=== PATIENT | female | born 1960 | race Caucasian/White ===

== ENCOUNTER 2017-01-07 16:00 | Outpatient (CLI) | payer OTHER ==
--- NOTE | 2017-01-08 12:26 | Mammography Report ---
DIGITAL SCREENING MAMMOGRAM: 01/07/2017 CLINICAL INDICATION: A 56-year-old for screening. COMPARISON: 07/2014, 02/2012, 05/2010, 04/2009, 03/2008, 02/2007 TECHNIQUE: Routine CC and MLO projections were obtained of the breasts. FINDINGS: The breasts again demonstrate heterogeneously dense fibroglandular parenchyma bilaterally. Coarse and punctate, typically benign calcifications are present. In the right lower, outer centra l breast, there is a possible developing density. Further evaluation with spot compression views and possible ultrasound is recommended. No mammographically suspicious findings are appreciated in the left breast. IMPRESSION: INCOMPLETE EXAMINATION. RECOMMENDATION: Additional evaluation of the right breast as above. BIRADS CATEGORY 0 - INCOMPLETE. STANDARD QUALIFYING STATEMENTS 1. This examination was reviewed with the aid of Computer-Aided Detection (CAD). 2. A negative or benign imaging report should not delay biopsy if clinically suspicious findings are present. Consider surgical consultation if warranted. More than 5% of cancers are not identified by i maging. 3. Dense breasts may obscure an underlying neoplasm. JOB #: [id number] EXT JOB #:[id number]
== END 2017-01-07 16:01 | disposition home or self-care (01) ==
LOC: DI 16:00
PROVIDERS: ATTEND Physician Assistant
DX: Z12.31 Encounter for screening mammogram for malignant neoplasm of breast (principal)
CPT/HCPCS: 77067

== ENCOUNTER 2017-02-16 13:45 | Outpatient (CLI) | payer OTHER ==
--- NOTE | 2017-02-16 18:19 | Mammography Report ---
DIGITAL DIAGNOSTIC RIGHT MAMMOGRAM: 02/16/2017 CLINICAL INDICATION: Possible developing density right lower outer central breast. TECHNIQUE: Right true lateral and spot compression views. COMPARISON: 01/07/2017, 07/25/2014, 03/03/2012, 05/15/2010. The right breast again demonstrates heterogeneously dense fibroglandular parenchyma. The density in question dissipates evenly on additional compression. No underlying mass lesion is seen. Punctate, typically benign calcifications are present. IMPRESSION: BENIGN FINDINGS. RECOMMENDATION: ROUTINE ANNUAL SCREENING UNLESS OTHERWISE CLINICALLY INDICATED. BIRADS CATEGORY: 2, BENIGN FINDINGS. STANDARD QUALIFYING STATEMENTS 1. This examination was reviewed with the aid of Computed-Aided Detection (CAD). 2. A negative or benign imaging report should not delay biopsy if clinically suspicious findings are present. Consider surgical consultation if warranted. More than 5% of cancers are not identified b y imaging. 3. Dense breasts may obscure an underlying neoplasm. JOB #: [id number] EXT JOB #:[id number]
== END 2017-02-16 13:46 | disposition home or self-care (01) ==
LOC: DI 13:45
PROVIDERS: ATTEND Physician Assistant
DX: R92.8 Other abnormal and inconclusive findings on diagnostic imaging of breast (principal)

== ENCOUNTER 2017-03-08 11:18 | Observation (INO) | payer OTHER ==
[2017-03-08] MEDS ORDERED: ASPIRIN CHEW 81 MG TABLET PO STA (11:34)
[2017-03-08 11:38] LABS: BASOPHILS # (AUTO) 0.1 10^3/uL (0.0-0.1); EOSINOPHILS # (AUTO) 0.2 10^3/uL (0.0-0.7); EOSINOPHILS % (AUTO) 2.1 %; HCT - HEMATOCRIT 44.1 % (37.0-47.0); HGB - HEMOGLOBIN 14.7 g/dL (12.0-16.0); LYMPHOCYTES # (AUTO) 2.5 10^3/uL (1.5-3.5); LYMPHOCYTES % (AUTO) 24.9 %; MEAN CORPUSCULAR HEMOGLOBIN 29.2 pg (27.0-31.0); MEAN CORPUSCULAR HGB CONC 33.3 g/dL (32.0-36.0); MEAN CORPUSCULAR VOLUME 87.6 fL (81.0-99.0); MEAN PLATELET VOLUME 8.4 fL (7.9-10.8); MONOCYTES # (AUTO) 0.7 10^3/uL (0.0-1.0); MONOCYTES % (AUTO) 6.5 %; NEUTROPHILS # (AUTO) 6.6 10^3/uL (1.5-6.6); NEUTROPHILS % (AUTO) 65.5 %; RED BLOOD COUNT 5.03 10^6/uL (4.20-5.40); RED CELL DISTRIBUTION WIDTH 14.2 % (12.0-15.0); UNCORRECTED WHITE BLOOD COUNT 10.1 x10^3/uL; WHITE BLOOD COUNT 10.1 x10^3/uL (4.8-10.8)
[2017-03-08 11:50] LABS: ALBUMIN/GLOBULIN RATIO 1.3 (1.0-2.2); BILIRUBIN,TOTAL 0.5 mg/dL (0.2-1.0); CALCIUM 9.9 mg/dL (8.5-10.3); CREATININE 0.8 mg/dL (0.4-1.0); POTASSIUM 4.3 mmol/L (3.5-5.0); TOTAL PROTEIN 8.1 g/dL (6.7-8.2)
[2017-03-08] MEDS ORDERED: ASPIRIN CHEW 81 MG TABLET ONE (11:50)
[2017-03-08] MEDS ORDERED: NITROGLYCERIN SL 0.4 MG TABLET SL STA (11:56)
[2017-03-08] MEDS ORDERED: FAMOTIDINE 20 MG/50 ML 50 ML IV ONE ×2 (11:56→12:17)
[2017-03-08] MEDS ORDERED: MAG HYDROX/AL HYDROX/SIMETH 30 ML UDC PO STA (11:56)
[2017-03-08] MEDS ORDERED: LIDOCAINE VISCOUS 2% 15 ML UDC MM STA (11:56)
--- NOTE | 2017-03-08 12:00 | ED Physician Documentation ---
History of Present Illness - Stated complaint Stated Complaint: CHEST PX - Chief complaint Chief Complaint: Cardiac - Additonal information Additional information: hx from pt 56 f no known CAD no DM HTN lipids, non smoker hx GERD on meds developed chest discomfort approx 40 min prior to my eval at 1145 initially felt like a low sternal bubble that worsened and radiated to upper chest and neck and then into back where pain is sharp and stabbing and severe + SOA + nausea + sweats no leg pain or swelling Review of Systems Constitutional: reports: Sweats. denies: Fever, Chills Cardiac: reports: Chest pain / pressure Respiratory: reports: Dyspnea GI: reports: Abdominal Pain (upper). 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 07/13/14 09/17/14 Sucralfate [Carafate] 1 gm PO ACHS #120 tablet 07/13/14 09/17/14 - Allergies Allergies/Adverse Reactions: Allergies Allergy/AdvReac Type Severity Reaction Status Date / Time No Known Drug Allergies Allergy Verified 03/08/17 11:30 - Social History Does the pt smoke?: No Smoking Status: Never smoker Does the pt drink ETOH?: Yes Does the pt have substance abuse?: No - Immunizations Immunizations are current?: Yes - POLST Patient has POLST: No PD ED PE NORMAL - Vitals Vital signs reviewed: Yes - General General: Alert and oriented X 3 - HEENT HEENT: PERRL - Neck Neck: Supple, no meningeal sign - Cardiac Cardiac: RRR - Respiratory Respiratory: No respiratory distress, Clear bilaterally - Abdomen Abdomen: Soft, Other (mild upper abd TTP) - Derm Derm: Normal color - Extremities Extremities: Normal ROM s pain, No edema, No calf tenderness / cord - Neuro Neuro: Alert and oriented X 3 Results - Vitals Vitals: Vital Signs - 24 hr 03/08/17 03/08/17 03/08/17 11:27 12:23 13:52 Temperature 36.5 C 36.8 C Heart Rate 70 82 83 Respiratory 17 15 15 Rate Blood Pressure 163/116 H 145/82 H 121/68 O2 Saturation 98 95 97 03/08/17 14:30 Temperature Heart Rate 68 Respiratory 15 Rate Blood Pressure 150/84 H O2 Saturation 97 Oxygen O2 Source Room air - EKG (time done) 1128 Rate: Rate (enter#) (69) Rhythm: NSR [place]: Normal Intervals: Normal SD QRS: Normal Ischemia: Normal ST segments 1215 Rate: Rate (enter#) (64) Rhythm: NSR [place]: Normal Intervals: Normal SD Ischemia: Normal ST segments, Q waves (III and V1 only) - Labs Labs: Laboratory Tests 03/08/17 03/08/17 03/08/17 11:30 11:30 11:30 WBC 10.1 RBC 5.03 Hgb 14.7 Hct 44.1 MCV 87.6 MCH 29.2 MCHC 33.3 RDW 14.2 Plt Count 269 MPV 8.4 Neut # 6.6 Lymph # 2.5 [place] # 0.7 Eos # 0.2 Baso # 0.1 Absolute Nucleated RBC 0.00 Nucleated RBC % 0.0 Sodium 137 Potassium 4.3 Chloride 104 Carbon Dioxide 24 Anion Gap 9.0 BUN 18 Creatinine 0.8 Estimated GFR (MDRD) 74 L Glucose 100 Calcium 9.9 Total Bilirubin 0.5 AST 24 ALT 26 Alkaline Phosphatase 176 H Troponin I < 0.04 Total Protein 8.1 Albumin 4.5 Globulin 3.6 Albumin/Globulin Ratio 1.3 Lipase 28 - Rads (name of study) CXR Radiology: See rad report (normal) CTA chest Radiology: See rad report (no dissection, no PE) PD MEDICAL DECISION MAKING - ED course ED course: pain sig improved with asa pepcid GI cocktail and nitro from 01/17 to 06/19 EKG X 2 no dynamic chnages trop #1 neg CTA neg for dissection and PE will admit for DINORA spoke to hospitalist at 1450 pt updated Departure - Departure Disposition: ED Place in Observation Clinical Impression: Chest pain
--- NOTE | 2017-03-08 12:06 | XRAY Preliminary Report ---
Exam: XR CHEST 1 VIEW IMPRESSION: Normal single view chest. [facility] SITE ID: [id number]
--- NOTE | 2017-03-08 12:09 | XRAY Report ---
EXAM: CHEST RADIOGRAPHY EXAM DATE: 03/08/2017 11:51 AM. CLINICAL HISTORY: Chest pain and shortness of breath. COMPARISON: None. TECHNIQUE: 1 view. FINDINGS: Lungs/Pleura: No focal opacities evident. No pleural effusion. No pneumothorax. Mediastinum: Within exam limitations, the cardiomediastinal contour is normal. Other: None. IMPRESSION: Normal single view chest. [facility] Referring Provider Line: [phone] SITE ID: [id number]
[2017-03-08] MEDS ORDERED: ASPIRIN 325 MG TABLET PO ONE (12:16)
[2017-03-08] MEDS ORDERED: NITROGLYCERIN SL 0.4 MG TABLET SL ONE (12:16)
[2017-03-08] MEDS ORDERED: LIDOCAINE VISCOUS 2% 15 ML UDC MM ONE (12:17)
[2017-03-08] MEDS ORDERED: MAG HYDROX/AL HYDROX/SIMETH 30 ML UDC ONE (12:17)
[2017-03-08] MEDS ORDERED: IOPAMIDOL-300 100 ML VIAL ONE (12:22)
[2017-03-08] MEDS ORDERED: IOPAMIDOL-300 100 ML VIAL IVP ONE (13:17)
--- NOTE | 2017-03-08 13:41 | CT Preliminary Report ---
Exam: CT CHEST ANGIO (AORTA) IMPRESSION: 1. Unremarkable thoracic aorta. No aneurysm or dissection. 2. No acute intrathoracic abnormality identified. Clear lungs. 3. Incidental findings, as noted. [facility] SITE ID: [id number]
--- NOTE | 2017-03-08 13:44 | CT Report ---
EXAM: CTA CHEST EXAM DATE: 03/08/2017 12:48 PM. CLINICAL HISTORY: Stabbing back pain radiating to back.? Thoracic aortic dissection.. COMPARISON: Chest x-ray earlier today. TECHNIQUE: Thin section thoracic spinal CT angiography during uncomplicated IV administration of 100 ML Isovue 300, with coronal and sagittal 3-D MIP reconstructions and reformats. In accordance with CT protocol optimization, one or more of the following dose reduction techniques w ere utilized for this exam: automated exposure control, adjustment of mA and/or KV based on patient s ize, or use of iterative reconstructive technique. FINDINGS: Vascular Structures: No thoracic aortic dissection or aneurysm. Ascending and descending thoracic aor ta measures 3 cm and 2.5 cm in diameter, respectively. No atheromatous plaques. Conventional arch con figuration and unremarkable great vessels. The pulmonary arteries are not well-opacified due to systemic arterial contrast bolus timing. No obvi ous central pulmonary embolism. Lungs/Pleura: Clear lungs. No vascular congestion. No central endobronchial obstructing lesion. No pl eural effusion or pneumothorax. Mediastinum: No mass or lymphadenopathy. Normal heart size without pericardial effusion. No coronary calcification. No esophageal dilatation. Upper Abdomen: Suspect hepatic steatosis. Partially visualized contracted gallbladder. Other: No acute fracture. Partially fused T10-T11 and T11-T12 disks, likely congenital. Mild dextrosc oliosis. IMPRESSION: 1. Unremarkable thoracic aorta. No aneurysm or dissection. 2. No acute intrathoracic abnormality identified. Clear lungs. 3. Incidental findings, as noted. [facility] Referring Provider Line: [phone] SITE ID: [id number]
[2017-03-08] MEDS ORDERED: SODIUM CHLORIDE FLUSH 0.9% 10 ML SYRINGE IVP PRN (14:54)
[2017-03-08] MEDS ORDERED: LORazepam 0.5 MG TABLET PO PRN ×2 (14:58→19:08)
[2017-03-08] MEDS ORDERED: NITROGLYCERIN 2% PASTE TOP STA (15:39)
[2017-03-08] MEDS ORDERED: NITROGLYCERIN 2% PASTE TOP ONE (15:53)
[2017-03-08] MEDS: ACETAMINOPHEN 325 MG TABLET PO PRN (17:27)
[2017-03-08] MEDS: ENOXAPARIN 40 MG/0.4 ML SYRINGE SUBQ SCH (17:27)
[2017-03-08] MEDS: FAMOTIDINE 20 MG TABLET PO SCH (17:27)
[2017-03-08] MEDS: SUCRALFATE 1 GM/10 ML UDC PO SCH ×2 (17:27→22:27)
[2017-03-08] MEDS ORDERED: ALBUTEROL 6.7 GM INHALER INH PRN (19:08)
[2017-03-08] MEDS ORDERED: IBUPROFEN 400 MG PO PRN (19:08)
[2017-03-08] MEDS ORDERED: ALBUTEROL NEB 2.5 MG/3 ML INH PRN (20:04)
[2017-03-08] MEDS: SODIUM CHLORIDE FLUSH 0.9% 10 ML SYRINGE IVP SCH (22:28)
--- NOTE | 2017-03-09 01:34 | HISTORY & PHYSICAL EXAMINATION ---
DATE OF ADMISSION: 03/08/2017 HISTORY OF PRESENT ILLNESS: This is a 56-year-old white female with a history of sleep apnea on CPAP, reflux, obesity. The patient states that she remembers having chest pain approximately 3 years ago f or which she underwent stress testing which she states was normal, these results are not available. The patient states she has been under increased stress at work. She developed an episode of chest pre ssure in the epigastric area and lower chest, which she describes as a "gas bubble." She could not bu rp. She goes from seated position to stretch out and also get some fresh air, but this did not reliev e the symptoms and she continued to have worsening and spread of the discomfort upward into the chest and then into the neck and jaw and through to the mid back. She tried to wait but there was no relie f and after 45 minutes, a coworker brought her to the emergency room, where she was still having 7-9/ 10 chest discomfort. She received both a GI cocktail, as well as nitrates and she states that mostly the GI medications bringing her pain eventually down to 0. There was associated shortness of breath w ith this and even pleuritic discomfort, as well as diaphoresis, but no nausea or vomiting and no radi ation to the arms. MEDICATIONS AT HOME: 1. Ativan p.r.n. 2. Synthroid. 3. Effexor. 4. Pepcid. 5. Prilosec. 6. Carafate. ALLERGIES: NONE. FAMILY HISTORY: Positive for heart disease in both parents in their 50s and her father had vascular d isease with an abdominal aortic aneurysm. SOCIAL HISTORY: She is a nonsmoker, never smoked, drinks social alcohol, denies drug use. 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 REVIEW OF SYSTEMS A comprehensive review of systems was performed and is negative except for the above findings. She de nies any CHF symptoms. PHYSICAL EXAMINATION: GENERAL: Reveals an obese white female. She is in no distress, supine in bed. VITAL SIGNS: Blood pressure 150/84, pulse is in the 70s. She is in sinus rhythm, afebrile, respirator y rate 18. HEENT: Unremarkable. Her mucosa is moist. JVD is negative. There is no carotid bruits. CHEST: Clear. HEART: Sounds are normal. No audible murmurs. BREASTS: Large. ABDOMEN: Obese, normal bowel sounds. Soft. EXTREMITIES: Pretibial edema bilaterally. There is no calf tenderness. NEUROLOGIC: Intact. LABORATORY: Normal BMP, normal calcium, normal liver tests. First troponin is not detected. CBC is no rmal. There was no INR done. Chest x-ray within normal limits. CT of the chest was done with dye that showed no evidence of pulmonary emboli and no aortic dissection. EKG: Normal sinus rhythm, early RS transition in V2 and no ST or T changes. Another EKG done shows lo ss of R-waves now in V1 and V2, but no ST or T changes. IMPRESSION/DIAGNOSES: 1. New onset of chest pain with radiation to the jaw. This patient's coronary risk factors include he r advanced age, obesity, family history of heart disease at an early age. 2. Abnormal electrocardiogram. If this is lead placement, the changes could be different. However, tr oponins need to be ordered for rule out of an acute coronary syndrome. 3. Obesity with continuous positive airway pressure use for which she is compliant. 4. Hypothyroidism, on treatment. 5. Depression, on treatment. 6. Gastroesophageal reflux disease. She vehemently denies that this symptom today is at all similar t o her gastroesophageal reflux disease symptoms. PLAN: Place the patient in observation, telemetry and cycle troponins to rule out acute coronary synd renate. The patient was instructed to call her nurse if the symptoms should recur. She will obtain an E KG during symptoms. If troponins are negative, then proceed to a stress test for evaluation for coron vianey ischemia. Continue with her other prehospital medications and CPAP machine. JOB #: [id number] EXT JOB #:[id number]
[2017-03-09] MEDS: SUCRALFATE 1 GM/10 ML UDC PO SCH ×2 (06:33→11:00)
[2017-03-09] MEDS: ACETAMINOPHEN 325 MG TABLET PO PRN (06:33)
[2017-03-09] MEDS: SODIUM CHLORIDE FLUSH 0.9% 10 ML SYRINGE IVP SCH ×2 (06:33→15:12)
[2017-03-09] MEDS ORDERED: PANTOPRAZOLE 40 MG TABLET PO SCH (07:00)
[2017-03-09] MEDS ORDERED: NON FORMULARY MED (Omeprazole [Omeprazole] 20 MG) PO SCH (07:00)
[2017-03-09] MEDS ORDERED: LEVOTHYROXINE 112 MCG TABLET PO SCH (07:00)
[2017-03-09] MEDS: FAMOTIDINE 20 MG TABLET PO SCH (08:33)
[2017-03-09] MEDS: ASPIRIN EC 81 MG TABLET PO SCH ×2 (08:33→10:07)
[2017-03-09] MEDS: ENOXAPARIN 40 MG/0.4 ML SYRINGE SUBQ SCH (08:34)
[2017-03-09] MEDS ORDERED: VENLAFAXINE ER 75 MG CAPSULE PO SCH (09:00)
[2017-03-09] MEDS ORDERED: VENLAFAXINE HCL 50 MG PO SCH (09:00)
[2017-03-09] MEDS ORDERED: POLYETHYLENE GLYCOL 3350 17 GM PACKET PO SCH (09:00)
[2017-03-09] MEDS ORDERED: LEVOTHYROXINE 75 MCG TABLET PO SCH (09:00)
[2017-03-09] MEDS ORDERED: REGADENOSON 0.4 MG/5 ML SYRINGE IVP ONE (11:55)
--- NOTE | 2017-03-09 13:36 | MISCELLANEOUS PROVIDER NOTE ---
Miscellaneous Provider Note - - Note: Patient underwent a EKG stress test. Patient had no changes to EKG during stress. The patient did complain of substernal chest pressure that lasted for about 20 seconds. The patient did not have any EKG changes during these symptoms. The patient will undergo a Lexiscan.
--- NOTE | 2017-03-09 14:51 | Nuclear Medicine Prelim Report ---
Exam: NM MYOCARDIAL PERFUSION STR/RST IMPRESSION: 1. No convincing significant fixed or reversible perfusion defects. 2. Left ventricular ejection fraction of >65%. 3. Normal segmental and global wall motion. 4. Normal left ventricular cavity size, no change with stress. BRYAN The call report notification system was initiated by Dr. Dmitri Ahmadi at 14:44 hrs on 03/09/17. The above findings were discussed with Dr. Frias by Dr. Dmitri Ahmadi at 14:50 hrs on 03/09/17. SITE ID: [id number]
--- NOTE | 2017-03-09 14:54 | Nuclear Medicine Report ---
EXAM: SINGLE-ISOTOPE PHARMACOLOGICAL STRESS TEST WITH REGADENOSON. SINGLE-ISOTOPE AND ONE-DAY REST/STRESS M YOCARDIAL PERFUSION SCANS WITH TOMOGRAPHIC IMAGING, QUANTITATIVE ANALYSIS, WALL MOTION ANALYSIS AND C ALCULATION OF EJECTION FRACTION. EXAM DATE: 03/09/2017 11:54 AM. CLINICAL HISTORY: Chest pain. COMPARISON: None. TECHNIQUE: After the intravenous administration of 11 mCi of Tc-99m sestamibi, a rest myocardial perfusion scan was done with tomography. Motion correction was applied when appropriate. A pharmacological stress was performed with the infusion of 0.4 mg regadenoson per protocol. Accordin g to protocol, 42.5 mCi of Tc-99m sestamibi was injected for stress myocardial perfusion scan. Motion correction was applied when appropriate. Gated tomographic images were obtained for wall motion analysis and computation of left ventricular e jection fraction. FINDINGS: There is a small defect in the distal anterior wall, larger on the rest images compared to the stress images, pattern most suggestive of breast attenuation artifact. No convincing fixed or rev ersible perfusion defects are evident. Wall motion analysis demonstrates no focal wall motion abnormality The left ventricular end-diastolic volume is 78 cc. The left ventricular end-systolic volume is 10 cc . The left ventricular ejection fraction is calculated to be 87%. IMPRESSION: 1. No convincing significant fixed or reversible perfusion defects. 2. Left ventricular ejection fraction of >65%. 3. Normal segmental and global wall motion. 4. Normal left ventricular cavity size, no change with stress. [facility] The call report notification system was initiated by Dr. Dmitri Ahmadi at 14:44 hrs on 03/09/17. The above findings were discussed with Dr. Frias by Dr. Dmitri Ahmadi at 14:50 hrs on 03/09/17. Referring Provider Line: [phone] SITE ID: [id number]
--- NOTE | 2017-03-09 15:16 | Discharge Plan ---
Discharge Plan Disposition: 01 Home, Self Care Condition: Good Diet: Regular Activity Restrictions: No Restrictions Shower Restrictions: No Driving Restrictions: No Weight Bearing: Full Weight Additional Instructions or Follow Up instructions: You presents to the emergency department with substernal chest pain. Your chest pain did improve with a GI cocktail in the emergency department however given risk factors we were concerned for possibility of acute coronary syndrome. You underwent testing with blood test called troponin which was negative for an acute IL. You also underwent a stress test which was negative for any evidence of coronary artery disease. Your symptoms have resolved and we believe they are most likely secondary to indigestion. I suggest that next time you have indigestion you try using Zantac or [place]. However if you do have persistent chest pain that does not resolve with the above then please return to the emergency department. No Smoking: If you smoke, Please STOP! Call for help. Follow-up with: Romi Albarran PA-C [Primary Care Provider] -
--- NOTE | 2017-03-09 15:20 | DISCHARGE SUMMARY ---
Discharge Summary Admit Date: 03/08/17 Discharge Date: 03/09/17 Discharging Provider: Bruno Frias MD Primary Care Provider: Genia Albarran Code Status: Attempt Resuscitation Condition at Discharge: Good Discharge Disposition: 01 Home, Self Care - DIAGNOSES Admission Diagnoses: 1. Chest pain 2. Abnormal electrocardiogram 3. Obesity 4. Hypothyroidism 5. Depression 6. GERD Discharge Diagnoses with Status of Each Condition: 1. Chest pain: Resolved 2. GERD: Stable 3. Obesity: Stable 4. Hypothyroidism: Stable 5. Depression: Stable 6. Abnormal EKG: Stable with negative troponins and stress test - HPI History of Present Illness: Patient is a 56-year-old female with a past medical history significant for obesity, obstructive sleep apnea on CPAP, GERD and hypothyroidism who presented to the emergency department for chief complaint of chest pain. The patient states that she remembers having similar chest pain about 3 years ago for which he underwent stress testing which was normal at that time. The patient states that this time she feels that she was under a lot of stress at work and while at rest began to develop episodic chest pressure in the epigastric and lower chest area. She states that it was like a gas bubble. She states that she could not burp. She went from a seated position to stretch out and also try to get some fresh air but none of this relieved her symptoms she continued to have worsening discomfort which continued to spread upward in her chest and then into her neck and jaw also into the mid back. She tried to wait but there was no relief even after 45 minutes and her coworkers brought her into the emergency department. On presentation emergency department the patient was having 7-9 out of 10 chest discomfort. She received both a GI cocktail, as well as nitrates and states that mostly the GI medication eventually brought down her pain to 0. There was associated shortness of breath and even pleuritic discomfort as well as diaphoresis but no nausea or vomiting and no radiation to the arms. The patient was placed in observation for serial troponins, telemetry monitoring and stress test. - HOSPITAL COURSE Hospital Course: The patient was monitored in observation and underwent serial troponins which were negative 3. The patient did not have any further chest pain overnight. During the morning she underwent a myocardial perfusion test and a EKG stress test. During the EKG component of the stress test the patient did complain of some chest discomfort that lasted about 20 seconds. The patient did not have any EKG changes during that time. The patient also underwent a myocardial perfusion test which revealed no convincing significant fixed or reversible perfusion defects. The patient had a normal ejection fraction of 65%. The patient also underwent a chest x-ray and a CT angios during her hospitalization and both of those were negative. The patient was discharged home in stable condition. She was thought to likely that her symptoms secondary to indigestion and was suggested to use Zantac and peptic [place]-P[place] at home in the case that she does have similar symptoms. She was also advised to follow- up with her primary care physician. - ALLERGIES Allergies/Adverse Reactions: Allergies Allergy/AdvReac Type Severity Reaction Status Date / Time No Known Drug Allergies Allergy Verified 03/08/17 11:30 - MEDICATIONS Home Medications: Ambulatory Orders Medication Instructions Recorded Confirmed Albuterol Sulfate [Proair Hfa 2 puffs INH Q4H PRN 03/08/17 03/08/17 Inhaler] Ibuprofen 400 - 600 mg PO PRN PRN 03/08/17 03/08/17 LORazepam [Ativan] 1 - 2 mg PO DAILY PRN 03/08/17 03/08/17 Levothyroxine [Synthroid] 112 mcg PO QDAC 03/08/17 03/08/17 Omeprazole 20 mg PO QDAC 03/08/17 03/08/17 Venlafaxine HCl 50 mg PO DAILY 03/08/17 03/08/17 - PHYSICAL EXAM AT DISCHARGE General Appearance: positive: No acute distress, Alert, Other (Obese) Eyes Bilateral: positive: Normal inspection, PERRL, EOMI, No lid inflammation, Conjunctivae nml, No scleral icterus ENT: positive: ENT inspection nml, Pharynx nml, No signs of dehydration. negative: Purulent nasal drainage, Pharyngeal erythema, Oral lesions Neck: positive: Nml inspection, Thyroid nml, No JVD, Trachea midline. negative : Thyromegaly, Lymphadenopathy (R), Lymphadenopathy (L), Carotid bruit, Tracheal deviation Respiratory: positive: Chest non-tender, No respiratory distress, Breath sounds nml. negative: Wheezes, Rales, Rhonchi Cardiovascular: positive: Regular rate & rhythm, No murmur, No gallop Peripheral Pulses: positive: 2+ Abdomen: positive: Non-tender, No organomegaly, Nml bowel sounds, No distention. negative: Guarding, Rebound, Hepatomegaly Back: positive: Nml inspection. negative: CVA tenderness (R), CVA tenderness (L ) Skin: positive: Color nml, No rash, Warm. negative: Cyanosis, Pallor Extremities: positive: Non-tender, Full ROM, Nml appearance, No pedal edema Neurologic/Psychiatric: positive: Oriented x3, CN's nml (2-12), Motor nml, Sensation nml, Mood/affect nml - LABS Result Diagrams: 03/08/17 11:30 03/08/17 11:30 Other Lab Results: Laboratory Results WBC 10.1 x10^3/uL (4.8-10.8) 03/08/17 11: RBC 5.03 10^6/uL (4.20-5.40) 03/08/17 11: Hgb 14.7 g/dL (12.0-16.0) 03/08/17 11: Hct 44.1 % (37.0-47.0) 03/08/17 11: MCV 87.6 fL (81.0-99.0) 03/08/17 11:30 MCH 29.2 pg (27.0-31.0) 03/08/17 11:30 MCHC 33.3 g/dL (32.0-36.0) 03/08/17 11:30 RDW 14.2 % (12.0-15.0) 03/08/17 11:30 Plt Count 269 10^3/uL (130-450) 03/08/17 11: MPV 8.4 fL (7.9-10.8) 03/08/17 11:30 Neut # 6.6 10^3/uL (1.5-6.6) 03/08/17 11:30 Lymph # 2.5 10^3/uL (1.5-3.5) 03/08/17 11:30 [place] # 0.7 10^3/uL (0.0-1.0) 03/08/17 11:30 Eos # 0.2 10^3/uL (0.0-0.7) 03/08/17 11:30 Baso # 0.1 10^3/uL (0.0-0.1) 03/08/17 11:30 Absolute Nucleated RBC 0.00 x10^3/uL 03/08/17 11:30 Nucleated RBC % 0.0 /100WBC 03/08/17 11:30 Sodium 137 mmol/L (135-145) 03/08/17 11:30 Potassium 4.3 mmol/L (3.5-5.0) 03/08/17 11:30 Chloride 104 mmol/L (101-111) 03/08/17 11:30 Carbon Dioxide 24 mmol/L (21-32) 03/08/17 11:30 Anion Gap 9.0 (6-13) 03/08/17 11:30 BUN 18 mg/dL (6-20) 03/08/17 11:30 Creatinine 0.8 mg/dL (0.4-1.0) 03/08/17 11:30 Estimated GFR (MDRD) 74 (>89) L 03/08/17 11:30 Glucose 100 mg/dL (70-100) 03/08/17 11:30 Calcium 9.9 mg/dL (8.5-10.3) 03/08/17 11:30 Total Bilirubin 0.5 mg/dL (0.2-1.0) 03/08/17 11:30 AST 24 IU/L (10-42) 03/08/17 11:30 ALT 26 IU/L (10-60) 03/08/17 11:30 Alkaline Phosphatase 176 IU/L (42-121) H 03/08/17 11:30 Troponin I < 0.04 ng/mL (<0.49) 03/08/17 22:37 Total Protein 8.1 g/dL (6.7-8.2) 03/08/17 11:30 Albumin 4.5 g/dL (3.2-5.5) 03/08/17 11:30 Globulin 3.6 g/dL (2.1-4.2) 03/08/17 11:30 Albumin/Globulin Ratio 1.3 (1.0-2.2) 03/08/17 11:30 Lipase 28 U/L (22-51) 03/08/17 11:30 - DIAGNOSTIC IMAGING Diagnostic Imaging Results: Final report reviewed Diagnostic Imaging Results Comments: Myocardial perfusion imaging Impression: 1. No convincing significant fixed or reversible perfusion defects. 2. Left ventricular ejection fraction of greater than 65%. 3. Normal segmental and global wall motion. 4. Normal left ventricular cavity size, no change with stress. EKG stress test: Patient did have episode of chest pain during the test but had no EKG changes. CT angiogram thorax Impression: 1. Unremarkable thoracic aorta. No aneurysm or dissection. 2. No acute intrathoracic abnormality identified. Clear lungs. 3. Suspect hepatic steatosis. Chest x-ray Impression: Normal single view chest - FOLLOW UP Follow Up: Patient to follow-up with her primary care physician if she has any further symptoms. Patient also advised to use Zantac and [place]-P[place]na if she has similar symptoms in the future. Patient's symptoms most likely were secondary to acid reflux. - TIME SPENT Time Spent in Discharge (Minutes): 40 (Fax to PCP)
[2017-03-09 15:39] VITALS: BP 145/85
== END 2017-03-09 15:47 | disposition home or self-care (01) ==
LOC: ED 11:18 → OBS 14:54
PROVIDERS: ADMIT Internal Medicine; ATTEND Internal Medicine
DX: R07.89 Other chest pain (principal); K21.9 Gastro-esophageal reflux disease without esophagitis; E66.9 Obesity, unspecified; Z68.36 Body mass index [BMI] 36.0-36.9, adult; E03.9 Hypothyroidism, unspecified; F32.9 Major depressive disorder, single episode, unspecified; R94.31 Abnormal electrocardiogram [ECG] [EKG]; G47.33 Obstructive sleep apnea (adult) (pediatric); Z79.51 Long term (current) use of inhaled steroids
CPT/HCPCS: 36415; 71010; 71275; 78452; 80053; 83690; 84484; 85025; 93005; 93017; 96365; 96372; 99218; 99283; 99284; A9270; A9500; J1650; J2785; Q9967

== ENCOUNTER 2021-05-08 10:16 | Outpatient (CLI) | payer OTHER ==
--- NOTE | 2021-05-08 10:54 | XRAY Report ---
PROCEDURE: Knee 3 View LT INDICATIONS: PAIN IN LEFT KNEE TECHNIQUE: 3 views of the left knee(s) were acquired. COMPARISON: None. FINDINGS: BONES/JOINT: No acute, displaced fracture or dislocation. No substantial suprapatellar joint effusio n. Tricompartment osteophytosis as well as superior patellar enthesophyte. Osteophytosis of the tibia l spines is also seen. Joint space narrowing of the patellofemoral compartment. SOFT TISSUES: No significant abnormality. IMPRESSION: 1.No acute osseous abnormality. Reviewed by: Aubrey Keith MD on 05/08/2021 10:53 AM [facility] Approved by: Aubrey Keith MD on 05/08/2021 10:53 AM [facility] Station ID: [id number]
== END 2021-05-08 10:17 | disposition home or self-care (01) ==
LOC: DI 10:16
PROVIDERS: ATTEND Internal Medicine
DX: M25.562 Pain in left knee (principal)

== ENCOUNTER 2021-05-12 14:30 | Outpatient (CLI) | payer OTHER ==
--- NOTE | 2021-05-14 13:57 | Mammography Report ---
BILATERAL DIGITAL SCREENING MAMMOGRAM 3D/2D: 05/12/2021 CLINICAL: Routine screening. Comparison is made to exams dated: 02/16/2017 mammogram, 07/15/2014 mammogram, 01/07/2017 mammogram, an d 03/03/2012 mammogram - [facility]. The tissue of both breasts is predominantly f atty. No significant masses, calcifications, or other findings are seen in either breast. There has been no significant interval change. IMPRESSION: NEGATIVE There is no mammographic evidence of malignancy. A 1 year screening mammogram is recommended. This exam was interpreted at Station ID: [id number]. NOTE: For mammograms, a report in lay terms will be sent to the patient. Approximately 15% of breast malignancies will not be visualized mammographically. In the management of a palpable breast mass, a negative mammogram must not discourage biopsy of a clinically suspicious lesion. Electronically Signed By: Preston Laughlin acr/penrad:05/13/2021 10:05:49 ACR BI-RADS Category 1: Negative 3341F PARENCHYMAL PATTERN: (F) - The breast(s) demonstrate(s) diffuse fatty replacement. BI-RADS CATEGORY: (1) - 1 RECOMMENDATION: (ANNUAL) - Recommend routine annual screening mammography. [id number] 1 year screening LATERALITY: (B)
== END 2021-05-12 14:31 | disposition home or self-care (01) ==
LOC: DI 14:30
PROVIDERS: ATTEND Internal Medicine
DX: Z12.31 Encounter for screening mammogram for malignant neoplasm of breast (principal)

== ENCOUNTER 2021-06-05 09:13 | Outpatient (CLI) | payer OTHER ==
[2021-06-05 10:00] VITALS: BP 150/88
--- NOTE | 2021-06-05 10:00 | SLEEP CARE CONSULTATION ---
Information from patient questionnaire entered by Shereen Lincoln MA. I have reviewed and concur with the information entered by Shereen Lincoln MA. This document represents the service I personally performed and the decisions made by , Rosa Russ ARNP. History of Present Illness Service Date and Time: 06/05/2021 0913 Reason for Visit: Previously diagnosed sleep apnea, sleep apnea on CPAP therapy, Re-establish care Chief Complaint: reports: Other (UPDATE SUPPLIES; check up) Date of Onset: 25 years, diagnosed 6 years ago Usual bedtime: 0900 1100 Time it takes to fall asleep: FEW MINUTES Snores at night: Yes Observed to quit breathing while asleep: Yes Sleeps alone due to snoring: No Number of times waking at night: 1 - 2 Reasons for waking at night: reports: Pain, Bathroom Toss, Turn, or Twitch while sleeping: Yes Recalls having dreams: Yes Usually gets out of bed at: 0630 Feels refreshed in the morning: Yes Morning headache: No Sleepy or fatigued during the day: Yes Ever fallen asleep while driving: Yes Takes day naps: Yes Dreams during day naps: No Year and Where: [facility] Type of Sleep Study: Home sleep study Additional HPI information: [place] was previously diagnosed to have mild, AHI 5.0, obstructive sleep apnea-hypopnea syndrome and comes in today to re-establish care for CPAP therapy. - Parasomnia Symptoms Ever been unable to move upon waking from sleep: No Walks in sleep: No Talks in sleep: No Ever acted out dreams in sleep: Yes Ever felt weak in the knees when startled or emotional: Yes Bothered by creepy, crawly, restless sensations in legs: Yes Problems with memory or concentration: Yes CPAP Compliance Data - Data Reviewed with Patient Average duration of nightly device use: 7 hours 56 minutes Compliance rate %: 97 Current pressure setting (cmH2O): 10 Average residual AHI: 0.8 Central apnea: 0.2 Obstructive apnea: 0.4 Compliance data discussion: She has been on the CPAP for 6 years and not cannot sleep without her CPAP. She has a ResMed CPAP that is at least 6 years old. She has been getting supplies from [employer] but this has been not good since the pandemic started. She uses a nasal pillows mask. Subjective Missed days of use due to: reports: other Patient concerns: reports: other (machine is noisy). denies: aerophagia, mask discomfort, air blowing in eyes, mask leak noise, condensation in mask/hose, nasal congestion, dry mouth, nose, throat, epistaxis Observed to snore while using device: No Current pressure setting perceived as: comfortable On therapy, patient: reports: sleeping better, awakening more refreshed, being more awake and alert during the day, more rested overall. 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 Patient is Single and lives in [place]. Have you smoked in the past 12 months: No Alcohol use: Yes Alcohol amount and frequency: 1 - 8 X DAILY Caffeine use: Yes Caffeine amount and frequency: 1 X DAILY Family History Family history of sleep disordered breathing: Yes Family Hx Sleep Apnea: Father: Snoring, Sleep apnea - Untreated, Sibling: Snoring, Sleep apnea - Treated, Grandparent: Snoring Allergies and Home Medications Drug allergies reviewed: Yes (NKDA) Home medication list reviewed: Yes Allergy and home medication list: Levothyroxine Venlafaxine Losartan potassium Omeprazole Vitamin D3 Fish oil ARED occuvite for eyes Lorazepam, as needed Albuterol, as needed Review of Systems Cardiovascular: reports: high blood pressure, leg or foot swelling Gastrointestinal: reports: heartburn Neurological: reports: headaches Psychiatric: reports: anxiety, depression Ear/Nose/Throat: reports: sinus problems, hoarseness, wisdom teeth removed Endocrine: reports: thyroid disease Musculoskeletal: reports: joint pain, back pain, joint swelling, muscle pain or cramping Immunologic: reports: sneezing, itching, allergies to food or environment Physical Exam Vital signs obtained and entered by: MARCELINA LONG Blood Pressure: 150/88 (LEFT, PULSE 77) Heart Rate: 81 O2 Saturation: 89 (WITH PAPER MASK) Height: 5 ft 4 in Weight: 225 lb (WITH CLOTHES) Body Mass Index: 38.6 BMI Classification: Obese Impression and Plan 1. Obstructive Sleep Apnea-Hypopnea Syndrome, mild, with good treatment compliance and excellent apnea control. On CPAP therapy, the patient has better sleep quality and is more rested overall. Patient has been with [employer] for her supplies but has not been able to get any for the last couple years. She states her ResMed is about 6-7 years old and the filter cover is broken off. In addition, it is starting to make louder noise when running, a possible sign of developing malfunction. Thus, the CPAP will be updated. A DWO prescription will be made. Compliance guidelines for new device and follow up discussed. Patient's apnea severity and rationale for treatment to reduce apnea, improve sleep quality and reduce cardiovascular and cerebrovascular events was reviewed. I also reviewed the benefit of consistent device use of CPAP for gastric reflux and depression. Currently patients BMI is 38.6. Obesity increases the risk of apnea, CPAP pressure requirements and overall health risks especially cardiovascular and diabetes. Thus patient is advised to lose weight. Weight loss can be done with reducing portion size, reducing refined foods and balancing content with vegetables, fruit and whole grain foods. In addition, patient encouraged to get regular exercise. * Continue auto CPAP pressure at 10 cmH2O * Update machine * Update supplies * Notify me if snoring with mask or feeling that the pressure is too much or too little * Attempt to lose weight * Call this office if any problems using CPAP * Return for follow up one month after obtaining new machine, or sooner if concerns arise Counseling Topics: Spare mask, Weight loss health impact Visit Type: In Office Time Spent with Patient (minutes): 32 Provider Statement: I spent 100% of the Face to Face Visit with the patient with greater than 50% spent counseling the patient and coordination of care.
== END 2021-06-05 09:14 | disposition home or self-care (01) ==
LOC: SC 09:13
PROVIDERS: ATTEND Nurse Practitioner Family
DX: G47.33 Obstructive sleep apnea (adult) (pediatric) (principal); E66.9 Obesity, unspecified; Z68.38 Body mass index [BMI] 38.0-38.9, adult
CPT/HCPCS: 99203; 99212

== ENCOUNTER 2021-09-09 12:12 | Outpatient (CLI) | payer OTHER ==
--- NOTE | 2021-09-09 12:52 | CARDIAC PROCEDURE NOTE ---
Stress Test Report Service Date: 09/09/21 Service Time: 12:30 Ordering Provider: Alber Mcgovern Indication for Test: Assess chest discomfort. Significant Medical History: Kaite has a history of chest discomfort dating back almost 10 years. A stress test performed in ~2012 was reportedly normal (results unavailable). In February,, she was hospitalized at [facility] with a prolonged episode of chest discomfort, ruling out for acute cardiac injury and she then underwent a Lexiscan stress myocardial perfusion imaging study that showed no convincing evidence of ischemia or prior infarct. She has continued to experience a similar kind of heavy chest pain on and off over the ensuing interval. Her blood pressure medication needs have increased over this interval, with sequential increasing dose of losartan and recent addition of amlodipine to her regimen, resulting in most recent blood pressures running in the 140s systolic. 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 She experiences onset of a heavy left central chest discomfort, that may radiate to the inside of her left arm and/or her lower left jaw. She has also had worsening exertional tolerance over the past couple of years, with increasing exertional dyspnea over this interval, especially on walking hills or up stairs. She reports diaphoresis with either the chest discomfort or her exertional dyspnea. She does have some history of discomfort with exertion, though it occurs mostly at rest. She tries to wait it out and practice deep breathing, which helps somewhat. She has never been treated with nitroglycerin and notes no change in pattern following the addition of amlodipine to her regimen a couple of weeks ago. Cardiac Risk Factors: Positive CAD risks include longstanding hypertension, hyperlipidemia and family history of CAD in both parents at middle-age (and AAA in father, later); no history of diabetes or any tobacco smoking in the past. She also has the modifying factor of obstructive sleep apnea treated with CPAP. Type of Stress Test: ETT with Myocardial Perfusion Imaging Procedure: -Exercise Treadmill Test- After signing informed consent, the patient underwent rest SPECT imaging and then performed treadmill exercise using a Modified Yimi protocol. The patient exercised for 10 minutes 26 seconds and achieved a peak heart rate of 136 (85 percent predicted maximum heart rate for age), and an estimated workload of 6.3 METS. The test was terminated due to fatigue/shortness of breath. Resting heart rate: 69 Peak heart rate: 136 Normal response to exercise. Resting BP: 152/86 Peak BP: 194/85 Hypertensive at rest with physiologic response of systolic and diastolic BPs to exercise. Rhythm during exercise: Sinus rhythm throughout, without ectopic beats. Symptoms: NO chest/arm/jaw discomfort reported. EKG at rest showed Normal sinus rhythm, normal in all aspects. EKG at peak stress showed no ischemia by EKG criteria. In Recovery HR and BP rapidly and normally returned to baseline levels. Nuclear imaging performed at rest and with stress and will be reported separately. Bobo Rod MD, was present throughout this treadmill stress study and supervised it in its entirety. Summary: 1) Exercise tolerance above average for age and sex as evidenced by BEE of -54%. 2) Normal resting EKG. 3) Adequate level of exercise was achieved on this treadmill stress test. 4) Mildly hypertensive at rest with physiologic BP response to exercise. 5) No ischemic changes by EKG criteria were seen at peak stress. 6) Analysis of gated nuclear images reveals normal left ventricular size and systolic function; SPECT analysis reveals small fixed defects in the septum and anterior wall, entirely similar in appearance to those seen on prior myocardial perfusion imaging study in 02/23. Final impression is that these are likely due to breast tissue attenuation. See separate report for more detail. CONCLUSIONS: 1) Low risk ETT findings, without chest pain provocation or ischemic ST depression. 2) Favorable exercise tolerance. 3) Similar myocardial perfusion imaging results as obtained in February,, to which the current study was compared. These defects are attributed to breast attenuation and there is no clear evidence of prior infarct or inducible ischemia
--- NOTE | 2021-09-09 16:54 | Nuclear Medicine Report ---
PROCEDURE: Rest and exercise myocardial perfusion SPECT with gated imaging and ejection fraction INDICATIONS: CHEST PAIN, DIZZINESS RADIOPHARMACEUTICAL: 12.3 mCi Tc-99m Myoview IV at rest and 46.0 mCi Tc-99m Myoview IV at peak exerc ise. [id number] was performed. TECHNIQUE: Radiopharmaceutical was injected at peak stress test, and also at rest. SPECT images wer e obtained. SPECT myocardial perfusion images were displayed in short axis, horizontal long axis, an d vertical long axis views. Gated images were reviewed using Auto[employer] software. COMPARISON: Myocardial perfusion scan, 03/09/2017. FINDINGS: Raw data: There is good myocardial labeling by radiotracer. No significant motion artifacts. Lung- to-heart ratio is 0.41 (normal is less than 0.46 for tetrafosmin tracer). Left ventricle function: Gated images demonstrate normal left ventricle wall thickening. No segment al wall motion abnormality. No transient ischemic dilation; TID is 0.92 (normal less than 1.30). Th e left ventricle resting end-diastolic volume is normal. Left ventricle stress ejection fraction is >70%; normal values are above 45%. Myocardial perfusion: There is a small, mild, fixed perfusion defect in the distal anterior wall, mo st likely caused by breast attenuation artifact. A small, moderate, partially reversible perfusion de fect is also seen in the septum, suspicious for shifting breast artifact. Similar defects were seen o n the comparison exam. IMPRESSION: 1. Probably normal myocardial perfusion images. Suspect breast attenuation and shifting breast artifa cts. Compared to last exam, there is no significant change. 2. Normal left ventricular volume and systolic function. 3. Please correlate with stress EKG result. PQRS ATTESTATIONS: Measure 322 - Is this imaging test primarily performed on a low-risk surgery patient for preoperative evaluation within 30 days preceding their low-risk non-cardiac surgery? Low-risk surgery is defined as cardiac or myocardial infarction less than 1%, including (but not limited to) endoscopic pr ocedures, superficial procedures, cataract surgery, and excisional breast surgery: Answer: No Measure 323 - Is this imaging test performed primarily for the monitoring of an asymptomatic patient who had percutaneous coronary intervention on the visit date or within 2 years of the visit date? An swer: No Measure 324 - Is this imaging test performed primarily for the initial detection and risk assessment on an asymptomatic, low coronary heart disease patient? Low CHD risk definition = clinicians should consider the maximum number of available patient factors used to estimate risk based on [place] (A TP III criteria), typically age, gender, diabetes, smoking status, and use of blood pressure medicati on, and integrate age appropriate estimates for missing elements, such as LDL or standard blood press ure. Answer: No Reviewed by: Rosana Lainez MD on 09/09/2021 4:53 PM PDT Approved by: Rosana Lainez MD on 09/09/2021 4:53 PM PDT Station ID: [id number]
== END 2021-09-09 12:13 | disposition home or self-care (01) ==
LOC: DI 12:12
PROVIDERS: ATTEND Internal Medicine
DX: R07.9 Chest pain, unspecified (principal); R42 Dizziness and giddiness; R06.09 Other forms of dyspnea; I10 Essential (primary) hypertension; E78.5 Hyperlipidemia, unspecified; Z82.49 Family history of ischemic heart disease and other diseases of the circulatory system; G47.33 Obstructive sleep apnea (adult) (pediatric)
CPT/HCPCS: 78452; 93017; A9500; 93016; 93018

== ENCOUNTER 2022-05-19 09:43 | Outpatient (CLI) | payer OTHER ==
[2022-05-19 10:17] VITALS: BP 126/78
--- NOTE | 2022-05-19 10:17 | SLEEP CARE CONSULTATION ---
Information from patient questionnaire entered by Ny Klein. I have reviewed and concur with the information entered by Ny Klein. This document represents the service I personally performed and the decisions made by me, Rosa Russ ARNP. History of Present Illness Service Date and Time: 05/19/2022 0943 Previous diagnosis: Mild, Obstructive Sleep Apnea-Hypopnea Syndrome AHI: 5.0 (n 2014) Reason for follow up: annual (LAST SEEN 05/31) Equipment type: CPAP (RESMED CANT FIND PT ON SITE SD CARD NEEDED) Equipment obtained from: Jackie (getting supplies) Mask style: Nasal pillows Backup mask available: Yes ( old mask) Last cushion change: April and Where: 2015 [facility] Type of Sleep Study: Home sleep study HPI additional information: [place] was diagnosed to have mild, AHI 5.0, obstructive sleep apnea- hypopnea syndrome and returned today for CPAP therapy annual follow-up. Sleep Study - Results Type of Sleep Study: Home sleep study Year and Where: 2015 [facility] CPAP Compliance Data - Data Reviewed with Patient Average duration of nightly device use: 7 HRS 23 MIN Compliance rate %: 92 (11/20/21-05/18/22; 177/180 days used) Current pressure setting (cmH2O): 10 Average residual AHI: 1.0 Central apnea: 0.3 Obstructive apnea: 0.4 Subjective Missed days of use due to: reports: travel (forgot to pack powercord for 5 days) Patient concerns: reports: mask leak noise. denies: aerophagia, mask discomfort, air blowing in eyes, condensation in mask/hose, nasal congestion, d ry mouth, nose, throat, epistaxis Observed to snore while using device: No (occasionally) Current pressure setting perceived as: comfortable On therapy, patient: reports: sleeping better, awakening more refreshed, being more awake and alert during the day, more rested overall. denies: drowsiness while driving Initial [place] Sleepiness Scale score: 7 (2021) Current [place] Sleepiness Scale score: 17 (05/19/22) Allergies and Home Medications Drug allergies reviewed: Yes (NKDA) Home medication list reviewed: Yes (HCTZ added for HTN) Review of Systems Review of systems same as previous: Yes (no changes) Physical Exam Vital signs obtained and entered by: [place] Wade MA Blood Pressure: 126/78 (LEFT ARM) Cuff size: regular Heart Rate: 69 O2 Saturation: 97 Height: 5 ft 4 in Weight: 220 lb 9.6 oz Body Mass Index: 37.8 BMI Classification: Obese Impression and Plan 1. Obstructive Sleep Apnea-Hypopnea Syndrome, mild, with good treatment compliance and good apnea control. On CPAP therapy, the patient has better sleep quality and is more rested overall. Patient has a [employer]Med Airsense 10 Autoset for Her that was last updated in 2014. The patients CPAP is over 5 years old and of reasonable use. In addition, it is giving her a message that the machine has reached "end of life". Thus, the CPAP will be updated. A DWO prescription will be made. Compliance guidelines for new device and follow up discussed. Patient's apnea severity and rationale for treatment to reduce apnea, improve sleep quality and reduce cardiovascular and cerebrovascular events was reviewed. I also reviewed the benefit of consistent device use of CPAP for hypertension, gastric reflux and anxiety. 2. Obesity, unspecified. Currently patients BMI is 37.8. Obesity increases the risk of apnea, CPAP pressure requirements and overall health risks especially cardiovascular and diabetes. Thus patient is advised to lose weight. * Continue CPAP pressure at 10 cmH2O * Update machine * Update supplies * Notify me if snoring with mask or feeling that the pressure is too much or too little * Attempt to lose weight * Call this office if any problems using CPAP * Return for follow up one month after obtaining new device, or sooner if concerns arise Counseling Topics: Spare mask, Weight loss health impact Prescriptions: Auto CPAP, Device supplies Visit Type: In Office Time Spent with Patient (minutes): 20 Provider Statement: I spent 100% of the Face to Face Visit with the patient with greater than 50% spent counseling the patient and coordination of care.
== END 2022-05-19 09:44 | disposition home or self-care (01) ==
LOC: SC 09:43
PROVIDERS: ATTEND Nurse Practitioner Family
DX: G47.33 Obstructive sleep apnea (adult) (pediatric) (principal); E66.9 Obesity, unspecified; Z68.37 Body mass index [BMI] 37.0-37.9, adult
CPT/HCPCS: 99212; 99213